=== PATIENT | male | born 1980 | race Caucasian/White ===

== ENCOUNTER 2019-11-12 00:57 | Emergency (ER) | payer OTHER ==
[2019-11-12 01:31] LABS: Hemoglobin 12.2 g/dL (14.0-18.0); Mean Corpuscular HGB CONC 28.6 g/dL (32.0-36.0); Mean Corpuscular Hemoglobin 17.9 pg (27.0-31.0); Mean Corpuscular Volume 62.7 fL (78.0-98.0); Mean Platelet Volume 10.3 fL (7.4-10.4); Platelet Count 259 thou/uL (130-400); RBC Distribution Width 14.5 % (11.5-14.5); Red Blood Cell (RBC) Count 6.78 mill/uL (4.70-6.10)
[2019-11-12 01:41] LABS: #Basophils 0.1 thou/uL (0.0-0.2); #Lymphocytes 0.8 thou/uL (1.20-3.40); #Monocytes 0.4 thou/uL (0.11-0.59); #Neutrophils 10.7 thou/uL (1.40-6.50); %Basophils 0.8 % (0.0-1.0); %Eosinophils 0.3 % (0.0-10.0); %Lymphocytes 6.7 % (21.0-51.0); %Monocytes 2.9 % (0.0-10.0); %Neutrophils 89.3 % (42.0-75.0); Elliptocytes SLIGHT = 2-5 cells (100X) (0-1/hpf); Hypochromia SLIGHT = 6-15 cells (100X) (0-5/hpf); MDiff Complete? YES; Microcytosis SLIGHT = 6-15 cells (100X) (0-5/hpf); Platelet Morphology Comment Appears Adequate; Reflex for Review?? NO; Schistocytes SLIGHT = 2-5 cells (100X) (0-1/hpf); Target Cells SLIGHT = 2-5 cells (100X) (0-1/hpf); Tear Drops SLIGHT = 2-5 cells (100X) (0-1/hpf)
[2019-11-12 01:46] LABS: ALT (SGPT) 26 U/L (8-55); AST (SGOT) 19 U/L (5-34); Albumin 4.6 g/dL (3.5-5.0); Alkaline Phosphatase 112 U/L (40-110); Anion Gap 21 mmol/L (10-20); BUN (Urea Nitrogen) 13 mg/dL (8.9-20.6); Bilirubin, Total 0.6 mg/dL (0.2-1.2); CK (CPK) 71 U/L (30-200); Calc. Creatinine Clearance 0 mL/min (70-130); Calcium 9.4 mg/dL (7.8-10.44); Carbon Dioxide 20 mmol/L (22-29); Chloride 103 mmol/L (98-107); Estimated GFR-MDRD Greater than 90; Glucose 101 mg/dL (70-105); Lipase 10 U/L (8-78); Protein, Total 7.6 g/dL (6.0-8.3); Sodium 140 mmol/L (136-145)
--- NOTE | 2019-11-12 07:07 | CT ---
PRELIMINARY REPORT/[facility]/EMERGENCY AFTER HOURS PROCEDURE: Receipt of this report by the clinical staff was confirmed with Estela Maddox RN by Mila Mendoza on Nov 12, 2019 01:58:00 CDT. Addendum electronically signed by Mila Mendoza on November 12, 2019 1:59:01 AM CDT PROCEDURE: CT Scan Abdomen and Pelvis without IV Contrast Material. HISTORY: Mid abdomen pain. TECHNIQUE: Axial images were performed with multiplanar reconstructions without IV contrast material. The patient was not given oral contrast material. COMPARISON: None. FINDINGS: Clear lung bases. Liver, spleen, adrenals, pancreas show no abnormality. Kidneys show no masses, urinary tract stones, or obstructive uropathy. Normal biliary tract. No abdominal ascites or pneumoperitoneum. Normal aorta. No lymphadenopathy. Large LEFT lateral hernia measuring 18 cm involving small bowel with partial small bowel obstruction with distention of loops to 4.6 cm. Ileocolic anastomosis mid abdomen small bowel anastomosis mid ab domen. Appendix is not visualized. Pelvis shows no masses or free fluid. Normal urinary bladder. Previous pinning of the LEFT hip. No acute bony abnormality . IMPRESSION: Large LEFT lateral hernia involving small bowel loops with partial small bowel obstruction. Small bowel anastomosis mid abdomen. No other acute change identified. ELECTRONICALLY SIGNED BY: Jonathan Jj MD Nov 12, 2019 1:56:00 AM CDT This report is intended for review by the ordering physician only, in accordance of law. If you recei ve this report in error, please call [facility] at [phone]. FINAL REPORT EMERGENCY AFTER HOURS CT STONE PROTOCOL: I agree with the preliminary report provided by [facility]. There is a large left lateral abdominal wall hernia containing loops of small bowel with dilatation o f the herniated loops suspicious for partial small bowel obstruction. 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 There is postprocedural change of prior cephalomedullary device placement within the left proximal femur. POS: BH
== END 2019-11-12 02:37 | disposition short-term general hospital (02) ==
LOC: MADERS 00:57
DX: K46.0 Unspecified abdominal hernia with obstruction, without gangrene (principal); K21.9 Gastro-esophageal reflux disease without esophagitis; F41.9 Anxiety disorder, unspecified; F17.290 Nicotine dependence, other tobacco product, uncomplicated; Z79.899 Other long term (current) drug therapy
CPT/HCPCS: 74176; 80053; 82550; 83690; 84484; 85025; 93005